=== PATIENT | male | born 1955 | race Caucasian/White ===

== ENCOUNTER 2022-10-12 07:52 | Day surgery (SDC) | payer OTHER, MEDICAID ==
[~2022-10-12] VITALS: Ht 203.2 cm; Wt 149.7 kg
[~2022-10-12 07:52] MED LIST: ALLO100T PO; APIX5TAB PO; ATOR40TA52 PO; DRON400T PO; GABA300C10 PO; HYDR-4795 PO; METF-370 PO; METO25TA5 PO
[2022-10-12] MEDS ORDERED: IODIXANOL 320MG/ML 100ML BTL IV ONE (09:49)
[2022-10-12] MEDS ORDERED: ANGIOMAX 250 MG VIAL IV ONE (09:52)
[2022-10-12] MEDS ORDERED: HEPARIN SODIUM (PORCINE) 5000 UNITS/ML 1ML VIAL ONE (09:52)
[2022-10-12] MEDS ORDERED: MIDAZOLAM HCL 2MG/2ML 2ml VIAL (1mg/ml) ONE (09:52)
[2022-10-12] MEDS ORDERED: fentaNYL CITRATE 100 MCG/2 ML VL ONE (09:52)
[2022-10-12] MEDS ORDERED: VERAPAMIL 2.5MG/ML INJ 2ML VIAL IV ONE (09:52)
[2022-10-12] MEDS ORDERED: SODIUM CHL 0.9% 0 ML ONE (09:53)
[2022-10-12] MEDS ORDERED: LIDOCAINE 2%HCL (LOCAL ANESTH.) INJ 20ML MDV ONE (09:53)
== END 2022-10-12 12:45 | disposition home or self-care (01) ==
LOC: CATH 07:52
PROVIDERS: ATTEND Internal Medicine Cardiovascular Disease
DX: R94.39 Abnormal result of other cardiovascular function study (principal); I12.9 Hypertensive chronic kidney disease with stage 1 through stage 4 chronic kidney disease, or unspecified chronic kidney disease; E11.22 Type 2 diabetes mellitus with diabetic chronic kidney disease; N18.9 Chronic kidney disease, unspecified; E78.5 Hyperlipidemia, unspecified; I48.91 Unspecified atrial fibrillation; G89.4 Chronic pain syndrome; G62.9 Polyneuropathy, unspecified; M10.9 Gout, unspecified; E66.9 Obesity, unspecified; Z68.36 Body mass index [BMI] 36.0-36.9, adult; Z79.899 Other long term (current) drug therapy; Z79.891 Long term (current) use of opiate analgesic; Z87.891 Personal history of nicotine dependence; Z20.822 Contact with and (suspected) exposure to COVID-19
CPT/HCPCS: 93458; C1725; C1769; C1894; J1644; J2250; J3010; Q9967; U0003; 99152